=== PATIENT | male | born 1980 | race Caucasian/White ===

== ENCOUNTER 2019-04-10 19:37 | Outpatient (CLI) | payer BC, MEDICAID ==
[~2019-04-10 19:37] MED LIST: FAMO20TA5 PO; PRD20T PO
== END 2019-04-11 06:28 | disposition home or self-care (01) ==
LOC: SLEEP 19:37
PROVIDERS: ATTEND Nurse Practitioner Community Health
DX: G47.33 Obstructive sleep apnea (adult) (pediatric) (principal); G47.10 Hypersomnia, unspecified; G47.00 Insomnia, unspecified; F39 Unspecified mood [affective] disorder; F41.9 Anxiety disorder, unspecified; J30.89 Other allergic rhinitis; M54.5 Low back pain; G89.29 Other chronic pain; R30.0 Dysuria
CPT/HCPCS: 95810

== ENCOUNTER → 2019-09-14 | Outpatient (CLI) | payer BC ==
--- NOTE | 2019-09-14 09:30 | Diagnostic Imaging Report ---
PROCEDURE: MRI lumbar spine. TECHNIQUE: Multiplanar, multisequence MRI of the lumbar spine was performed without contrast. INDICATION: Low back pain, left sciatica pain. Back injury several years ago COMPARISON: None FINDINGS: Alignment appears normal with no spondylolisthesis. There is disc height loss and decreased signal at the L5-S1 disc. Vertebral body heights are preserved. No acute fracture is seen. The soft tissues about the lumbar spine demonstrate no acute abnormality. The conus terminates in appropriate position. T12-L1: No significant disc bulge. No spinal canal or foraminal stenosis. L1-L2: No significant disc bulge. No spinal canal or foraminal stenosis. L2-L3: No significant disc bulge. No spinal canal or foraminal stenosis. L3-L4: No significant disc bulge. No spinal canal stenosis. No foraminal stenosis. L4-L5: No significant disc bulge. No spinal canal or foraminal stenosis. L5-S1: Mild disc bulge with small central disc extrusion. No spinal canal stenosis. No foraminal stenosis. IMPRESSION: 1. Mild disc degeneration at L5-S1 with no significant spinal canal or foraminal stenosis seen. No acute osseous abnormalities seen in the lumbar spine. Dictated by: Dictated on workstation # [id number]
== END ==
LOC: RAD 08:19
PROVIDERS: ATTEND Nurse Practitioner Community Health
DX: M47.817 Spondylosis without myelopathy or radiculopathy, lumbosacral region (principal)
CPT/HCPCS: 72148

== ENCOUNTER → 2020-09-17 | Outpatient (CLI) | payer BC | LOC: CARD 09:30 | PROVIDERS: ATTEND Nurse Practitioner Family | DX: R00.2 Palpitations (principal) | CPT/HCPCS: 93306 ==

== ENCOUNTER → 2020-10-22 | Outpatient (CLI) | payer BC ==
[~2020-10-22] VITALS: Ht 188 cm; Wt 130.0 kg
[~2020-10-22] MED LIST changes: +CATHETER FLUSH 10 ML SYR IV PRN; +REGADENOSON 0.4 MG/5 ML SYR (LEXISCAN) IV ONE
[2020-10-22 09:16] VITALS: BP 129/85
--- NOTE | 2020-10-23 13:51 | STRESS TEST ---
DATE OF SERVICE: 10/22/2020 RESTING AND POST REGADENOSON TECHNETIUM-99M TETROFOSMIN SPECT CT IMAGING ORDERING PHYSICIAN: Dr. Dawson. PRIMARY PHYSICIAN: [facility]. CLINICAL DIAGNOSIS: Chest discomfort. Baseline images were carried out after injection of 10.15 mCi of technetium-99m Tetrofosmin. This was followed by 0.4 mg Regadenoson and 29 mCi of technetium-99m Tetrofosmin for stress imaging. The electrocardiogram showed sinus rhythm with incomplete right bundle branch block at baseline. It did not change significantly with the Regadenoson infusion. A few isolated premature ventricular contractions were seen. The patient noted lightheadedness following Regadenoson infusion, which resolved in a few minutes. Review of images at rest and following stress indicates a somewhat patchy tracer uptake. There appears to be a transient perfusion defect in the basal inferior wall. Gated images show normal regional wall motion and normal global left ventricular systolic function, left ventricular ejection fraction is calculated to be 77%. Left ventricular end diastolic volume is 66 mL. CONCLUSIONS: 1. This study is suggestive of a small amount of basal inferior ischemia. 2. Normal regional wall motion. 3. Normal to hyperdynamic left ventricular systolic function with a calculated ejection fraction of 77%. Job ID: [id number] DocumentID: [id number] Dictated Date: 10/23/2020 12:49:25 [employer] Librarian Date: 10/23/2020 13:50:26 Dictated By: NICHOLE DAWSON MD, MA, FACP, FACC, MTDD
== END ==
LOC: CARD 07:30
PROVIDERS: ATTEND Internal Medicine Cardiovascular Disease
DX: R07.89 Other chest pain (principal); R00.2 Palpitations
CPT/HCPCS: 78452; 93017; 93225; 93226; A9502

== ENCOUNTER 2020-11-05 12:00 | Day surgery (SDC) | payer BC ==
[~2020-11-05] VITALS: Ht 188 cm; Wt 128.0 kg
[2020-11-05] VITALS (10 sets, daily range): BP systolic 116–143; BP diastolic 72–87
[2020-11-05 10:31] LABS: HEMATOCRIT 44 % (40-54); HEMOGLOBIN 14.6 g/dL (13.3-17.7); MEAN CORPUSCULAR HEMOGLOBIN 28 pg (25-34); MEAN CORPUSCULAR HGB CONC 33 g/dL (32-36); MEAN CORPUSCULAR VOLUME 86 fL (80-99); PLATELET COUNT 229 10^3/uL (130-400); WHITE BLOOD COUNT 8.4 10^3/uL (4.3-11.0)
[2020-11-05 10:44] LABS: PROTHROMBIN TIME PATIENT 13.4 SEC (12.2-14.7)
[2020-11-05 10:54] LABS: ALANINE AMINOTRANSFERASE 39 U/L (0-55); ALBUMIN 4.1 GM/DL (3.2-4.5); ALKALINE PHOSPHATASE 100 U/L (40-136); BILIRUBIN,TOTAL 1.5 MG/DL (0.1-1.0); BUN/CREATININE RATIO 15; CALCIUM 9.6 MG/DL (8.5-10.1); CARBON DIOXIDE 28 MMOL/L (21-32); CHLORIDE 103 MMOL/L (98-107); CHOLESTEROL 168 MG/DL (< 200); CREATININE SERUM 0.88 MG/DL (0.60-1.30); GFR ESTIMATED > 60; GLUCOSE 86 MG/DL (70-105); HDL CHOLESTEROL 40 MG/DL (40-60); SODIUM 139 MMOL/L (135-145); TOTAL PROTEIN 7.6 GM/DL (6.4-8.2); TRIGLYCERIDES 222 MG/DL (<150); VLDL CHOLESTEROL 44 MG/DL (5-40)
[~2020-11-05 12:00] MED LIST changes: -CATHETER FLUSH 10 ML SYR IV PRN; +LAMO150T3 PO; +METO-351 PO; +NS IV 1000 ML 1,000 ML IV SCH; -REGADENOSON 0.4 MG/5 ML SYR (LEXISCAN) IV ONE
[2020-11-05] MEDS ORDERED: MIDAZOLAM 5 MG/5 ML (VERSED) VIAL ONE (12:30)
[2020-11-05] MEDS ORDERED: fentaNYL INJ 100 MCG/2 ML AMP ONE (12:30)
--- NOTE | 2020-11-05 13:35 | Cardiac Procedure Note-CS/ASA ---
Pre-Procedure Note Pre-Op Procedure Note H&P Reviewed The H&P was reviewed, patient examined and no changes noted. Date H&P Reviewed: Nov 05, 2020 Time H&P Reviewed: 12:50 Conscious Sedation Pre-Proced Time 12:50 ASA Score 3 For ASA 3 and 4: Consider anesthesia and medical clearance. Also, for patients with a history of failed moderate sedation consider anesthesia. Airway Lungs Heart ASA score ASA 1: a normal healthy patient ASA 2: a patient with a mild systemic disease (mid diabetes, controlled hypertension, obesity ASA 3: a patient with a severe systemic disease that limits activity (angina, COPD, prior Myocardial infarction) ASA 4: a patient with an incapacitating disease that is a constant threat to life (CHF, renal failure) ASA 5: a moribund patient not expected to survive 24 hrs. (ruptured aneurysm) ASA 6: a declared brain- patient whose organs are being harvested. For emergent operations, add the letter E after the classification Mallampati Classification Grade 2 Sedation Plan Analgesia, Amnesia, Plan communicated to team members, Discussed options with patient/fam, Discussed risks with patient/fam The patient is an appropriate candidate to undergo the planned procedure, sedation, and anesthesia. The patient immediately re-assessed prior to indication. NICHOLE RUDOLPH MD FACP FAC CCDS Nov 05, 2020 13:35
--- NOTE | 2020-11-05 13:52 | Discharge Inst-Cardiology ---
Discharge Inst-Cardiac Discharge Medications Continued Medications: Lamotrigine (Lamictal) 150 Mg Tablet 150 MG PO BID, TAB Metoprolol Succinate (Toprol Xl) 25 Mg Tab.er.24h 25 MG PO DAILY, TAB NICHOLE RUDOLPH MD FACP [facility] CCDS Nov 05, 2020 13:52
--- NOTE | 2020-11-05 13:53 | Discharge Inst-Post CATH ---
Discharge Inst-CATH/EP Post Cardiac Cath/EP D/C Inst Follow Up/Plan F/u with Dr Dawson next week ACTIVITY * Go Home directly and rest. * Limit activity of the leg (or wrist if it was used) for 7 days including aerobics, swimming, jogging, bicycling, etc. * Restrict stair-climbing for 7 days if possible, if not, climb up with your no n-cath leg, then bring together on the same step. * Avoid lifting, pushing, pulling or excessive movement of the affected ext remity for 7 days. * Customary sexual activity may be resumed after 2 days-use caution not to use a position that strains or causes pain to the affected extremity. * No driving for 24 hours. * NO SMOKING. * Avoid straining for bowel movements for 7 days. * Gentle walking on level ground is allowed. * Returning to work will depend on the type of procedure and the results. Your doctor will discuss this with you. CALL YOUR DOCTOR FOR ANY OF THE FOLLOWING: *If bleeding from the puncture site occurs- Apply gentle pressure to site with clean cloth and call your doctor or EMS. * If a knot or lump forms under the skin, increases in size, or causes pain. * If bruising appears to be worsening or moving further down your leg instead of disappearing. * Temperature above 101 F. CARE OF YOUR GROIN INCISION; * Bruising or purple discoloration of the skin near the puncture site is common. * You may shower only, no bathtub bathing for 5 days. Be careful to avoid slipping as your leg may feel stiff. * If a closure device was used on your femoral artery, please see the attached guide regarding care of the device and your leg. * Leave dressing on FOR 24 hours. CARE OF YOUR WRIST INCISION; * Bruising or purple discoloration of the skin near the puncture site is common. * You may shower. * DO NOT submerge wrist. * Leave dressing on FOR 24 hours. NICHOLE DAWSON MD FACP FAC CCDS Nov 05, 2020 13:53
[2020-11-05] MEDS ORDERED: PATIENT MAY USE OWN MEDS, ALL PO SCH (14:00)
[2020-11-05] MEDS ORDERED: NS IV 1000 ML 1,000 ML IV SCH (14:00)
--- NOTE | 2020-11-05 15:36 | CARDIAC CATHETERIZATION ---
DATE OF SERVICE: 11/05/2020 CARDIAC CATHETERIZATION REPORT The patient is a 39-year-old gentleman who has been experiencing exertional shortness of breath. Myocardial perfusion imaging showed a small amount of basal inferior ischemia. Cardiac catheterization was carried out today after having obtained an informed consent. DESCRIPTION OF PROCEDURE: He was brought to the cardiac catheterization laboratory in a fasting state. Right groin was prepared and draped in the usual sterile fashion. Lidocaine 1% was used for local anesthesia. Modified Seldinger technique was used to advance a 5-[place] sheath in right femoral artery, 5-[place] JL4 catheter for left coronary angiography, 5-[place] JR4 catheter for right coronary angiography, 5-[place] pigtail catheter was used for left heart catheterization and left ventricular angiography. Angiography of the right femoral artery was carried out through the sheath. Mynx was used to achieve hemostasis following completion of the diagnostic procedure and following sheath removal. He tolerated the procedure well. HEMODYNAMICS: Left ventricular end-diastolic pressure following coronary angiography was 16 mmHg. There was no significant pressure gradient on pullback across the aortic valve. Ascending aortic pressure was 110/81 with a mean 80 mmHg. CORONARY ANGIOGRAPHY: Left main coronary artery, left anterior descending artery, left circumflex artery and right coronary artery do not exhibit any angiographically significant disease. Right coronary artery is dominant. 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 LEFT VENTRICULAR ANGIOGRAPHY: Left ventricular angiography was carried out in the right anterior oblique projection. Global left ventricular systolic function is normal. No regional wall motion abnormalities seen. Left ventricular ejection fraction approximately 60%. CONCLUSIONS: 1. No angiographically significant disease. 2. 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 3. Normal global left ventricular systolic function with ejection fraction of 60%. 4. Mild elevation of left ventricular end-diastolic pressure. DISCUSSION AND RECOMMENDATIONS: Current regimen is being continued. Outpatient followup is advised. Job ID: [id number] DocumentID: [id number] Dictated Date: 11/05/2020 13:45:09 Arc Trimmer Date: 11/05/2020 15:35:05 Dictated By: NICHOLE RUDOLPH MD, MA, FACP, FACC, MTDD
== END 2020-11-05 17:15 | disposition home or self-care (01) ==
LOC: CATH 12:00 → SDC 13:54 → CATH 17:15
PROVIDERS: ATTEND Internal Medicine Cardiovascular Disease
DX: R00.2 Palpitations (principal); R07.89 Other chest pain; R06.02 Shortness of breath; I25.89 Other forms of chronic ischemic heart disease; G47.33 Obstructive sleep apnea (adult) (pediatric); F31.9 Bipolar disorder, unspecified; Z79.899 Other long term (current) drug therapy
CPT/HCPCS: 36430; 80053; 80061; 85027; 85610; 85730; 87081; 93458; C1760; C1894; 36415

== ENCOUNTER → 2021-03-05 | Outpatient (CLI) | payer BC ==
[~2021-03-05] MED LIST changes: -NS IV 1000 ML 1,000 ML IV SCH
== END ==
LOC: LABNPT 06:37
PROVIDERS: ATTEND Otolaryngology Otolaryngology/Facial Plastic Surgery
DX: Z01.812 Encounter for preprocedural laboratory examination (principal); G47.33 Obstructive sleep apnea (adult) (pediatric); U07.1 COVID-19
CPT/HCPCS: 87635

== ENCOUNTER 2021-03-07 20:25 | Outpatient (CLI) | payer BC | END 2021-03-08 06:32 | disposition home or self-care (01) | LOC: SLEEP 20:25 | PROVIDERS: ATTEND Otolaryngology Otolaryngology/Facial Plastic Surgery | DX: G47.33 Obstructive sleep apnea (adult) (pediatric) (principal); G47.10 Hypersomnia, unspecified | CPT/HCPCS: 95811 ==